=== PATIENT | female | born 2000 | race Caucasian/White ===

== ENCOUNTER 2022-03-05 22:38 | Emergency (ER) | payer MEDICAID, SELFPAY ==
[2022-03-05 23:08] VITALS: BP 117/80; PULSE 114; RESP 16; TEMP 36.9; O2SAT 96; BMI 19.8
[2022-03-05 23:31] LABS: IDNOW Serial# 08D9AD1C; Strep A Nucleic Acid Negative (Negative)
[2022-03-06 00:02] LABS: Influenza A PCR POSITIVE (Negative); Influenza B PCR NEGATIVE (Negative); Resp Syncy Virus RNA Qual PCR NEGATIVE (Negative); SARS COV2 PCR INHOUSE NEGATIVE (Negative)
--- NOTE | 2022-03-06 00:25 | ED_ITS ---
HPI - URI/Sore Throat General Chief Complaint: General Medical Stated Complaint: flu symptoms Time Seen by Provider: 03/06/22 00:14 Source: patient and family (girlfriend) Mode of arrival: ambulatory Limitations: no limitations History of Present Illness HPI Narrative: Patient is an otherwise healthy 21-year-old female presents to the ED with her girlfriend for evaluation fevers, myalgias, sore throat, cough, chest congestion, and nausea. She states her symptoms started Saturday of last week shortly after her girlfriend reported similar symptoms. Her girlfriend reports measured fevers with T-max 102. Patient reports tolerating liquids however is nervous that she cannot tolerate solids because ?she is nauseous and does not want to throw up. Denies any episodes of vomiting at this time. She denies any other concerns at this time. She reports being up-to-date on all her vaccines. MD elicited complaint: fever, cough and sore throat Onset (ago): day(s) (6) Consistency: constant Severity: moderate Description of mucous: yellow Exacerbating factors: nothing Relieving factors: nothing Context: sick contacts (Girlfriend sick few days prior) Associated symptoms: myalgias and nausea Treatments prior to arrival: none Related Data Previous Rx's Medication Instructions Recorded benzonatate 100 mg capsule 100 mg PO BID PRN cough #14 caps 03/06/22 cyclobenzaprine 10 mg tablet 10 mg PO Q8H Muscle spasms #14 tabs 03/06/22 ondansetron HCl 4 mg tablet 4 mg PO Q8H #14 tabs 03/06/22 Allergies Allergy/AdvReac Type Severity Reaction Status Date / Time No Known Allergies Allergy Verified 03/05/22 23:07 Review of Systems Review of Systems: Constitutional : Positive fevers, positive fatigue. No Malaise ENT/Mouth : Positive sore throat. No runny nose Eyes: No Discharge Cardiovascular : No Chest Pain, No SOB Respiratory : Positive Cough, positive chest congestion. No Sputum, No Wheezing, No Smoke Exposure, No Dyspnea Gastrointestinal : Positive nausea. No Vomiting, No Diarrhea Genitourinary : No irregular bleeding, No Dysuria, No Urinary Frequency, No Hematuria, No Urinary Incontinence, No Urgency, No Flank Pain, Musculoskeletal : Positive myalgias Skin : No rash Neuro : No Headache Yes all other systems are reviewed and are negative PMFSH Past Medical History Attestation statement: The following information was validated with the patient. Source: old records reviewed, obtained from family and nursing notes reviewed Physical Exam Vital Signs: Vital Signs: Last Vital Signs Temp 98.5 F 03/05/22 23:08 Pulse 114 H 03/05/22 23:08 Resp 16 03/05/22 23:08 BP 117/80 03/05/22 23:08 Pulse Ox 96 03/05/22 23:08 O2 Del Method 03/05/22 23:08 BMI result Body Mass Index 19.8 vital signs have been reviewed Blood pressure normal. Heart rate 114. Resp iration normal. Oxygen saturation normal. Appearance: Alert. Oriented X3. No acute distress. Head: Normal external exam. Normocephalic. Atraumatic. Eyes: PERRLA. EOMI. Conjunctiva and sclera normal. Eyelids normal. ENT: EAC normal. TM's Normal. Pharynx normal. Uvula midline. Moist mucous membranes. No trismus noted. No drooling noted. No muffled voice noted. No stridor noted. Patient tolerating secretions well. Neck: Normal inspection. Neck supple. FROM. No adenopathy. Thyroid Normal. No meningeal signs. No neck mass noted. CVS: Normal heart rate and rhythm. Heart sound normal. Pulses normal throughout. No murmurs/rales/gallops. Respiratory: No respiratory distress. Painless inspiration. Breath sounds normal. No wheezes/rales/rhonchi noted. Chest nontender. No accessory muscle usage noted or decreased air movement noted. Normal chest excursions noted. Abdomen: Soft and nontender. Bowel sounds normal in all 4 quadrants. No distention noted. No organomegaly noted. No visible injury noted. Back: No CVA tenderness. Full range of motion noted. No rashes/lesion/induration/fluctuance or signs of infection noted. Skin: Skin warm and dry. Normal skin color. Normal skin turgor. No rashes/lesions/lacerations noted. Extremities: No lower extremity edema. Extremities exhibit normal range of motion. Extremities nontender. Neuro: Oriented X 3. Normal steady gait. No focal neuro deficits noted. Vascular: + radial pulses/+ 2 distal pedal pulses/+2 dorsalis pedis b/l. Normal cap refill. No cyanosis noted to upper extremity nails and lower extremity toes nails. Course Course Course Narrative: Patient is an otherwise healthy 21-year-old female presents to the ED with her girlfriend for evaluation fevers, myalgias, sore throat, cough, chest congestion, and nausea. Patient currently afebrile, mildly tachycardic at 114 bpm most likely secondary to dehydration. Physical exam otherwise within normal limits. Patient positive for influenza A. Discussed symptomatic treatment with patient, will prescribe Flexeril, benzonatate, Zofran for her symptoms. Will give patient a dose of Zofran while she is here for her nausea. Discussed return to ED if worsening symptoms occur. Advised follow-up with PCP within next 2-3 days. Patient verbalized understanding and agrees to plan. MDM - URI/Sore Throat Medical Records Attestation: I reviewed the patient's medical records. Lab Data Attestation: I reviewed the patient's lab results. Labs: Lab Results 03/05/22 03/05/22 Range/Units 23:17 23:17 Influenza Type A (PCR) POSITIVE A (Negative) Influenza Type B (PCR) NEGATIVE (Negative) RSV RNA Qual (PCR) NEGATIVE (Negative) SARS-CoV-2 RNA (RT-PCR) NEGATIVE (Negative) S. pyogenes GrpA VALERIA Negative (Negative) Discharge Plan Discharge Clinical Impression: Influenza A Patient Disposition: Home, Self-Care Instructions: Influenza (ED), Droplet Precautions (ED) Prescriptions: New ondansetron HCl 4 mg tablet 4 mg PO Q8H Qty: 14 0RF benzonatate 100 mg capsule 100 mg PO BID PRN (Reason: cough) Qty: 14 0RF cyclobenzaprine 10 mg tablet 10 mg PO Q8H Qty: 14 0RF Referrals: Physician,Unknown J [Primary Care Provider] - 3 days (your pcp) Stand Alone Forms: Work/School Release
[2022-03-06] MEDS: Ondansetron ODT 4 MG TAB.RAPDIS TRANSLINGU (01:05)
== END 2022-03-06 01:25 | disposition home or self-care (01) ==
PROVIDERS: Emergency Provider Student in an Organized Health Care Education/Training Program
DX: J10.1 Influenza due to other identified influenza virus with other respiratory manifestations (principal); R50.9 Fever, unspecified; Z20.822 Contact with and (suspected) exposure to COVID-19
CPT/HCPCS: 0241U; 36415; 87651; 99282; 99283